=== PATIENT | female | born 1935 | race Asian ===

== ENCOUNTER 2021-06-15 12:26 | Inpatient (IN) | payer MEDICARE, OTHER ==
[~2021-06-15] VITALS: Ht 152.4 cm; Wt 54.7 kg
[2021-06-15 13:41] LABS: BASOPHILS % (AUTO) 0.4 % (0.0-2.0); EOSINOPHILS % (AUTO) 0.4 % (1.0-6.0); HEMATOCRIT 26.6 % (36-46); HEMOGLOBIN 8.8 g/dL (12.0-16.0); LYMPHOCYTES # (AUTO) 1.1 K/uL (1.0-4.8); LYMPHOCYTES % (AUTO) 9.7 % (22.0-44.0); MEAN CORPUSCULAR HEMOGLOBIN 31.6 pg (26.0-34.0); MEAN CORPUSCULAR HGB CONC 33.3 G/dL (31.0-37.0); MEAN CORPUSCULAR VOLUME 95 fL (80-100); NEUTROPHILS # (AUTO) 8.9 K/uL (1.8-7.7); NEUTROPHILS % (AUTO) 80.5 % (40.0-70.0); PLATELET COUNT (AUTO) 222 K/uL (150-450); RED CELL DISTRIBUTION WIDTH 13.8 % (11.5-14.5)
[2021-06-15 13:50] LABS: CALCIUM, TOTAL 8.3 mg/dL (8.8-10.5); CREATININE 4.16 mg/dL (0.60-1.30); POTASSIUM 4.3 mmol/L (3.5-5.1)
[2021-06-15 13:56] LABS: ALBUMIN 2.7 g/dL (3.4-5.0); BILIRUBIN,TOTAL 0.3 mg/dL (0.1-1.0); TOTAL PROTEIN, SERUM 7.7 g/dL (6.4-8.2)
[2021-06-15] MEDS ORDERED: ACETAMINOPHEN 325 MG TABLET PO PRN (16:00)
[2021-06-15] MEDS ORDERED: 0.9% SODIUM CHLORIDE 10 ML SYRINGE IVP PRN (16:00)
[2021-06-15] MEDS ORDERED: ONDANSETRON HCL 4 MG/2 ML VIAL IVP PRN ×2 (16:00→20:45)
[2021-06-15 17:18] LABS: COVID AG,FIA SOURCE NASOPHARYNGEAL
[2021-06-15] MEDS ORDERED: ALBUTEROL SULFATE 2.5 MG/0.5 ML NEB SOLUTION NEB PRN (20:45)
[2021-06-15] MEDS ORDERED: MAGNESIUM HYDROXIDE SUSPENSION 30 ML UDCUP PO PRN (20:45)
[2021-06-15] MEDS ORDERED: IPRATROPIUM BROMIDE 0.5 MG/2.5 ML NEB SOLUTION NEB PRN (20:45)
[2021-06-15] MEDS ORDERED: ZOLPIDEM TARTRATE 5 MG TABLET PO PRN (20:45)
[2021-06-15] MEDS ORDERED: BISACODYL 10 MG RECTAL RECTAL SUPPOSITORY PR PRN (20:45)
[2021-06-15] MEDS ORDERED: MORPHINE SULFATE 2 MG/ML SYRINGE IVP PRN (20:45)
[2021-06-15] MEDS ORDERED: HYDROCODONE/ACETAMINOPHEN 5-325 MG TABLET PO PRN (20:45)
[2021-06-15 20:53] VITALS: BP 102/57
[2021-06-15] MEDS: DOCUSATE SODIUM 100 MG CAPSULE PO SCH (21:43)
[2021-06-15] MEDS: HEPARIN SODIUM,PORCINE 5,000 UNITS/ML VIAL SQ SCH (23:42)
[2021-06-15 23:43] VITALS: BP 118/70
[2021-06-16] MEDS: ACETAMINOPHEN 325 MG TABLET PO PRN ×2 (01:15→23:48)
[2021-06-16 05:12] LABS: BASOPHILS % (AUTO) 0.4 % (0.0-2.0); EOSINOPHILS % (AUTO) 0.6 % (1.0-6.0); HEMATOCRIT 26.8 % (36-46); HEMOGLOBIN 8.9 g/dL (12.0-16.0); LYMPHOCYTES # (AUTO) 1.4 K/uL (1.0-4.8); MEAN CORPUSCULAR HEMOGLOBIN 31.2 pg (26.0-34.0); MEAN CORPUSCULAR HGB CONC 33.3 G/dL (31.0-37.0); MEAN CORPUSCULAR VOLUME 94 fL (80-100); MONOCYTES % (AUTO) 11.3 % (2.0-9.0); NEUTROPHILS # (AUTO) 6.1 K/uL (1.8-7.7); NEUTROPHILS % (AUTO) 71.7 % (40.0-70.0); PLATELET COUNT (AUTO) 223 K/uL (150-450); RED BLOOD CELL COUNT(AUTO) 2.86 MIL/uL (4.00-5.20)
[2021-06-16 06:12] VITALS: BP 100/51
[2021-06-16 08:28] VITALS: BP 114/66
[2021-06-16] MEDS: DOCUSATE SODIUM 100 MG CAPSULE PO SCH ×2 (08:45→21:08)
[2021-06-16] MEDS: PANTOPRAZOLE SODIUM 40 MG/VIAL IVP SCH (08:45)
[2021-06-16] MEDS: HEPARIN SODIUM,PORCINE 5,000 UNITS/ML VIAL SQ SCH ×3 (08:46→23:39)
[2021-06-16] MEDS ORDERED: FUROSEMIDE 40 MG/4 ML VIAL IVP SCH (09:00)
[2021-06-16 10:57] VITALS: BP 116/64
[2021-06-16] MEDS ORDERED: EPOETIN ALFA 10,000 UNITS/ML 2 ML VIAL SQ SCH (11:00)
[2021-06-16 11:48] LABS: APPEARANCE,URINE CLEAR (CLEAR); BILIRUBIN,URINE NEGATIVE (NEGATIVE); GLUCOSE, URINE (UA) NEGATIVE (NEGATIVE); KETONES,URINE NEGATIVE (NEGATIVE); LEUKOCYTE ESTERASE ,URINE NEGATIVE (NEGATIVE); NITRATE,URINE NEGATIVE (NEGATIVE); OCCULT BLOOD,URINE TRACE (NEGATIVE); PH,URINE 5.5 (5.0-8.0); PROTEIN,URINE POS 1+ (NEGATIVE); UROBILINOGEN,URINE 0.2 mg/dL (<=1.0)
[2021-06-16 11:51] LABS: CREATININE,URINE RANDOM 25.4 mg/dL (30.0-125.0); PROTEIN,URINE RANDOM 45 mg/dL (0-11.9); SODIUM,URINE RANDOM 113 mmol/l (20-110); UREA NITROGEN,URINE RANDOM 204 mg/dL (350-1000)
[2021-06-16] MEDS ORDERED: SODIUM CHLORIDE 0.9% 500 ML IV ONE (12:15)
[2021-06-16 12:26] LABS: BACTERIA,URINE None Seen /HPF (None Seen); RBC,URINE 0-2 /HPF (0-2); WBC,URINE None Seen /HPF (0-5)
[2021-06-16] MEDS ORDERED: SODIUM CHLORIDE 0.9% 1,000 ML ONE (12:30)
[2021-06-16] MEDS: CefTRIAXone 1 GM/DEXTROSE 50 ML IV SCH (12:46)
[2021-06-16 15:39] VITALS: BP 129/62
[2021-06-16 20:00] VITALS: BP 114/67
[2021-06-17] VITALS: BP 112/60
[2021-06-17 05:35] VITALS: BP 100/51
[2021-06-17 06:59] LABS: % IRON SATURATION 7.9 % (22-44)
[2021-06-17 07:32] LABS: CALCIUM, TOTAL 8.8 mg/dL (8.8-10.5); CREATININE 4.28 mg/dL (0.60-1.30); PHOSPHORUS 4.7 mg/dL (2.5-4.9); POTASSIUM 3.5 mmol/L (3.5-5.1)
[2021-06-17 08:39] VITALS: BP 115/64
[2021-06-17] MEDS: HEPARIN SODIUM,PORCINE 5,000 UNITS/ML VIAL SQ SCH ×3 (08:42→23:44)
[2021-06-17] MEDS: PANTOPRAZOLE SODIUM 40 MG/VIAL IVP SCH (08:43)
[2021-06-17] MEDS: DOCUSATE SODIUM 100 MG CAPSULE PO SCH ×2 (08:43→19:49)
[2021-06-17] MEDS ORDERED: SODIUM CHLORIDE 0.9% 1,000 ML IV ONE (09:45)
[2021-06-17 11:10] VITALS: BP 109/62
[2021-06-17 11:23] LABS: BASOPHILS % (AUTO) 0.6 % (0.0-2.0); EOSINOPHILS % (AUTO) 0.3 % (1.0-6.0); HEMATOCRIT 29.1 % (36-46); HEMOGLOBIN 9.4 g/dL (12.0-16.0); LYMPHOCYTES # (AUTO) 1.8 K/uL (1.0-4.8); LYMPHOCYTES % (AUTO) 21.9 % (22.0-44.0); MEAN CORPUSCULAR HEMOGLOBIN 30.6 pg (26.0-34.0); MEAN CORPUSCULAR HGB CONC 32.3 G/dL (31.0-37.0); MEAN CORPUSCULAR VOLUME 95 fL (80-100); MONOCYTES % (AUTO) 12.4 % (2.0-9.0); NEUTROPHILS # (AUTO) 5.4 K/uL (1.8-7.7); NEUTROPHILS % (AUTO) 64.8 % (40.0-70.0); PLATELET COUNT (AUTO) 236 K/uL (150-450); RED BLOOD CELL COUNT(AUTO) 3.07 MIL/uL (4.00-5.20); RED CELL DISTRIBUTION WIDTH 13.7 % (11.5-14.5)
[2021-06-17 11:48] LABS: ALBUMIN 2.6 g/dL (3.4-5.0); BILIRUBIN,TOTAL 0.3 mg/dL (0.1-1.0)
[2021-06-17] MEDS: CefTRIAXone 1 GM/DEXTROSE 50 ML IV SCH (12:10)
[2021-06-17 15:24] VITALS: BP 122/65
[2021-06-17] MEDS: SOD FERRIC GLUC COMPLX/SUCROSE 125 MG in SODIUM CHLORIDE 0.9% 100 ML IV SCH (19:49)
[2021-06-17 20:15] VITALS: BP 108/61
[2021-06-17] MEDS: ACETAMINOPHEN 325 MG TABLET PO PRN (21:07)
[2021-06-18] VITALS (7 sets, daily range): BP systolic 99–116; BP diastolic 51–64
[2021-06-18 07:03] LABS: BASOPHILS % (AUTO) 0.4 % (0.0-2.0); HEMATOCRIT 27.4 % (36-46); LYMPHOCYTES # (AUTO) 0.9 K/uL (1.0-4.8); LYMPHOCYTES % (AUTO) 11.9 % (22.0-44.0); MEAN CORPUSCULAR HEMOGLOBIN 30.9 pg (26.0-34.0); MEAN CORPUSCULAR VOLUME 94 fL (80-100); MONOCYTES # (AUTO) 0.9 K/uL (0.1-1.0); NEUTROPHILS # (AUTO) 5.6 K/uL (1.8-7.7); NEUTROPHILS % (AUTO) 74.7 % (40.0-70.0); PLATELET COUNT (AUTO) 213 K/uL (150-450); RED BLOOD CELL COUNT(AUTO) 2.93 MIL/uL (4.00-5.20); RED CELL DISTRIBUTION WIDTH 14.1 % (11.5-14.5)
[2021-06-18 07:28] LABS: ALBUMIN 2.1 g/dL (3.4-5.0); BILIRUBIN,TOTAL 0.2 mg/dL (0.1-1.0); CALCIUM, TOTAL 8.2 mg/dL (8.8-10.5); CREATININE 3.63 mg/dL (0.60-1.30); MAGNESIUM 1.9 mg/dL (1.80-2.40); PHOSPHORUS 3.9 mg/dL (2.5-4.9); POTASSIUM 3.9 mmol/L (3.5-5.1)
[2021-06-18] MEDS ORDERED: AZITHROMYCIN 500 MG/NS 250 ML IV ONE (09:45)
[2021-06-18] MEDS: HEPARIN SODIUM,PORCINE 5,000 UNITS/ML VIAL SQ SCH ×3 (10:27→23:49)
[2021-06-18] MEDS: PANTOPRAZOLE SODIUM 40 MG/VIAL IVP SCH (10:28)
[2021-06-18] MEDS: DOCUSATE SODIUM 100 MG CAPSULE PO SCH ×2 (10:28→20:41)
[2021-06-18] MEDS: CefTRIAXone 1 GM/DEXTROSE 50 ML IV SCH (12:11)
[2021-06-18] MEDS ORDERED: SODIUM CHLORIDE 0.9% 1,000 ML IV ONE (15:00)
[2021-06-18] MEDS: SOD FERRIC GLUC COMPLX/SUCROSE 125 MG in SODIUM CHLORIDE 0.9% 100 ML IV SCH (17:12)
[2021-06-18] MEDS: DOXYCYCLINE HYCLATE 100 MG TABLET PO SCH (20:41)
[2021-06-19] VITALS (7 sets, daily range): BP systolic 108–181; BP diastolic 61–111
[2021-06-19 03:06] LABS: ALBUMIN URINE (ELP) 39.1 %
[2021-06-19] MEDS: HEPARIN SODIUM,PORCINE 5,000 UNITS/ML VIAL SQ SCH ×3 (08:22→23:32)
[2021-06-19] MEDS: DOXYCYCLINE HYCLATE 100 MG TABLET PO SCH ×2 (08:23→20:37)
[2021-06-19] MEDS: DOCUSATE SODIUM 100 MG CAPSULE PO SCH ×2 (08:23→20:38)
[2021-06-19] MEDS: PANTOPRAZOLE SODIUM 40 MG/VIAL IVP SCH (08:23)
[2021-06-19 08:56] LABS: BASOPHILS % (AUTO) 0.5 % (0.0-2.0); EOSINOPHILS % (AUTO) 0.7 % (1.0-6.0); HEMATOCRIT 25.6 % (36-46); HEMOGLOBIN 8.4 g/dL (12.0-16.0); LYMPHOCYTES # (AUTO) 1.3 K/uL (1.0-4.8); LYMPHOCYTES % (AUTO) 18.1 % (22.0-44.0); MEAN CORPUSCULAR HEMOGLOBIN 31.1 pg (26.0-34.0); MEAN CORPUSCULAR VOLUME 94 fL (80-100); MONOCYTES # (AUTO) 0.7 K/uL (0.1-1.0); NEUTROPHILS # (AUTO) 4.9 K/uL (1.8-7.7); NEUTROPHILS % (AUTO) 70.7 % (40.0-70.0); PLATELET COUNT (AUTO) 220 K/uL (150-450); RED BLOOD CELL COUNT(AUTO) 2.72 MIL/uL (4.00-5.20); RED CELL DISTRIBUTION WIDTH 14.1 % (11.5-14.5)
[2021-06-19 09:03] LABS: ALBUMIN 2.2 g/dL (3.4-5.0); BILIRUBIN,TOTAL 0.2 mg/dL (0.1-1.0); CALCIUM, TOTAL 8.4 mg/dL (8.8-10.5); CREATININE 3.1 mg/dL (0.60-1.30); MAGNESIUM 1.9 mg/dL (1.80-2.40); PHOSPHORUS 3.4 mg/dL (2.5-4.9); POTASSIUM 4.6 mmol/L (3.5-5.1); TOTAL PROTEIN, SERUM 7.3 g/dL (6.4-8.2)
[2021-06-19 11:41] LABS: ABG BASE EXCESS -9.7 mmol/L (-2.0-3.0); ABG CARBOXYHEMOGLOBIN 0.3 % (0.0-1.5); ABG METHEMOGLOBIN 0.1 % (0.0-1.5); ABG OXYGEN CONTENT 14.6 mL/dL (15.0-23.0); ABG OXYGEN SATURATION 97.8 % (95.0-98.0); ABG OXYHEMOGLOBIN 97.4 % (94.0-100.0); ABG PCO2 43 mmHg (35-45); ABG PH 7.233 (7.35-7.450); ABG TOTAL HEMOGLOBIN 10.5 G/dL (12.0-18.0); SOURCE, BLOOD GAS ARTERIAL; TEMPERATURE, FAHRENHEIT, BG 98.6 FAHREN (96.0-98.6)
[2021-06-19 11:42] LABS: O2 DEVICE,BLOOD GAS NRB (ROOM AIR); SITE, BLOOD GAS LFT RADIAL
[2021-06-19] MEDS ORDERED: BUMETANIDE 0.25 MG/ML 4 ML VIAL IVP ONE (12:00)
[2021-06-19] MEDS ORDERED: MORPHINE SULFATE 2 MG/ML SYRINGE IVP ONE (12:00)
[2021-06-19] MEDS ORDERED: NITROGLYCERIN 2% (1 GM=INCH) PACKET TP ONE (12:00)
[2021-06-19] MEDS: CefTRIAXone 1 GM/DEXTROSE 50 ML IV SCH (12:12)
[2021-06-19] MEDS: SOD FERRIC GLUC COMPLX/SUCROSE 125 MG in SODIUM CHLORIDE 0.9% 100 ML IV SCH (17:26)
[2021-06-19 18:12] LABS: GLUCOMETER DEV NAME(LOC) 5S.2B; GLUCOSE,POINT OF CARE 124 MG/DL (70-110)
[2021-06-20 00:15] VITALS: BP 125/78
[2021-06-20 05:53] VITALS: BP 122/77
[2021-06-20 06:21] LABS: BASOPHILS % (AUTO) 0.5 % (0.0-2.0); EOSINOPHILS % (AUTO) 1.7 % (1.0-6.0); HEMATOCRIT 28.7 % (36-46); HEMOGLOBIN 9.5 g/dL (12.0-16.0); LYMPHOCYTES # (AUTO) 1.4 K/uL (1.0-4.8); LYMPHOCYTES % (AUTO) 16.9 % (22.0-44.0); MEAN CORPUSCULAR HEMOGLOBIN 31.2 pg (26.0-34.0); MEAN CORPUSCULAR VOLUME 94 fL (80-100); MONOCYTES # (AUTO) 0.6 K/uL (0.1-1.0); MONOCYTES % (AUTO) 7.8 % (2.0-9.0); NEUTROPHILS % (AUTO) 73.1 % (40.0-70.0); PLATELET COUNT (AUTO) 274 K/uL (150-450); RED BLOOD CELL COUNT(AUTO) 3.05 MIL/uL (4.00-5.20); RED CELL DISTRIBUTION WIDTH 14.4 % (11.5-14.5)
[2021-06-20 06:32] LABS: ALBUMIN 2.4 g/dL (3.4-5.0); BILIRUBIN,TOTAL 0.3 mg/dL (0.1-1.0); CREATININE 3.22 mg/dL (0.60-1.30); MAGNESIUM 1.9 mg/dL (1.80-2.40); PHOSPHORUS 3.8 mg/dL (2.5-4.9); POTASSIUM 3.9 mmol/L (3.5-5.1); TOTAL PROTEIN, SERUM 7.9 g/dL (6.4-8.2)
[2021-06-20 07:35] VITALS: BP 125/76
[2021-06-20] MEDS: DOCUSATE SODIUM 100 MG CAPSULE PO SCH ×2 (09:54→20:40)
[2021-06-20] MEDS: DOXYCYCLINE HYCLATE 100 MG TABLET PO SCH ×2 (09:54→20:40)
[2021-06-20] MEDS: PANTOPRAZOLE SODIUM 40 MG/VIAL IVP SCH (09:55)
[2021-06-20] MEDS: HEPARIN SODIUM,PORCINE 5,000 UNITS/ML VIAL SQ SCH ×3 (09:55→23:58)
[2021-06-20] MEDS ORDERED: BUMETANIDE 0.25 MG/ML 4 ML VIAL IVP ONE (10:30)
[2021-06-20 11:36] VITALS: BP 122/74
[2021-06-20] MEDS: CefTRIAXone 1 GM/DEXTROSE 50 ML IV SCH (12:17)
[2021-06-20 16:16] VITALS: BP 142/77
[2021-06-20] MEDS: SOD FERRIC GLUC COMPLX/SUCROSE 125 MG in SODIUM CHLORIDE 0.9% 100 ML IV SCH (18:46)
[2021-06-20 19:20] VITALS: BP 124/70
[2021-06-20 22:58] LABS: INFLUENZA TYPE A NEGATIVE FOR TYPE A (NEGATIVE); INFLUENZA TYPE B NEGATIVE FOR TYPE B (NEGATIVE)
[2021-06-21 00:13] VITALS: BP 109/57
[2021-06-21 05:20] VITALS: BP 130/74
[2021-06-21 07:15] LABS: BASOPHILS % (AUTO) 0.5 % (0.0-2.0); EOSINOPHILS % (AUTO) 2.7 % (1.0-6.0); HEMATOCRIT 26.4 % (36-46); HEMOGLOBIN 8.7 g/dL (12.0-16.0); LYMPHOCYTES # (AUTO) 1.1 K/uL (1.0-4.8); LYMPHOCYTES % (AUTO) 19.9 % (22.0-44.0); MEAN CORPUSCULAR HEMOGLOBIN 31.2 pg (26.0-34.0); MEAN CORPUSCULAR VOLUME 95 fL (80-100); MONOCYTES # (AUTO) 0.6 K/uL (0.1-1.0); MONOCYTES % (AUTO) 10.9 % (2.0-9.0); NEUTROPHILS # (AUTO) 3.7 K/uL (1.8-7.7); PLATELET COUNT (AUTO) 251 K/uL (150-450); RED BLOOD CELL COUNT(AUTO) 2.79 MIL/uL (4.00-5.20); RED CELL DISTRIBUTION WIDTH 14.2 % (11.5-14.5)
[2021-06-21 07:32] LABS: ALBUMIN 2.2 g/dL (3.4-5.0); BILIRUBIN,TOTAL 0.2 mg/dL (0.1-1.0); CREATININE 2.91 mg/dL (0.60-1.30); MAGNESIUM 1.9 mg/dL (1.80-2.40); PHOSPHORUS 3.6 mg/dL (2.5-4.9); TOTAL PROTEIN, SERUM 7.3 g/dL (6.4-8.2)
[2021-06-21 07:37] VITALS: BP 113/61
[2021-06-21] MEDS: DOCUSATE SODIUM 100 MG CAPSULE PO SCH (09:20)
[2021-06-21] MEDS: DOXYCYCLINE HYCLATE 100 MG TABLET PO SCH (09:20)
[2021-06-21] MEDS: PANTOPRAZOLE SODIUM 40 MG/VIAL IVP SCH (09:21)
[2021-06-21] MEDS: HEPARIN SODIUM,PORCINE 5,000 UNITS/ML VIAL SQ SCH ×2 (09:21→16:00)
[2021-06-21 11:56] VITALS: BP 124/87
[2021-06-21] MEDS: CefTRIAXone 1 GM/DEXTROSE 50 ML IV SCH (13:46)
[2021-06-21] MEDS ORDERED: FURO20 PO (15:03)
[2021-06-21] MEDS ORDERED: CARV3 PO (15:04)
[2021-06-21] MEDS ORDERED: DOXY-354 PO (15:05)
[2021-06-21 15:59] VITALS: BP 130/70
[2021-06-21] MEDS: SOD FERRIC GLUC COMPLX/SUCROSE 125 MG in SODIUM CHLORIDE 0.9% 100 ML IV SCH (16:30)
== END 2021-06-21 17:00 | disposition home or self-care (01) | DRG 73 ==
LOC: EMS 12:28 → 5N 18:40 → 5S 06-19 21:20
PROVIDERS: ADMIT Hospitalist; ATTEND Hospitalist
DX: G90.8 Other disorders of autonomic nervous system (principal); J18.9 Pneumonia, unspecified organism; I50.31 Acute diastolic (congestive) heart failure; J96.01 Acute respiratory failure with hypoxia; I13.2 Hypertensive heart and chronic kidney disease with heart failure and with stage 5 chronic kidney disease, or end stage renal disease; N18.5 Chronic kidney disease, stage 5; N17.9 Acute kidney failure, unspecified; E44.0 Moderate protein-calorie malnutrition; E83.39 Other disorders of phosphorus metabolism; E11.42 Type 2 diabetes mellitus with diabetic polyneuropathy; E11.22 Type 2 diabetes mellitus with diabetic chronic kidney disease; D63.1 Anemia in chronic kidney disease; E87.5 Hyperkalemia; I25.10 Atherosclerotic heart disease of native coronary artery without angina pectoris; I48.91 Unspecified atrial fibrillation; Z20.822 Contact with and (suspected) exposure to COVID-19; I34.0 Nonrheumatic mitral (valve) insufficiency; E78.5 Hyperlipidemia, unspecified; Z91.81 History of falling; Z68.23 Body mass index [BMI] 23.0-23.9, adult; Z79.899 Other long term (current) drug therapy
CPT/HCPCS: 36600; 70450; 71045; 76770; 80053; 81001; 82043; 82570; 82728; 82805; 82962; 83540; 83550; 83735; 83880; 84100; 84156; 84166; 84300; 84484; 84540; 85025; 85379; 87040; 87804; 93005; 93306; 93880; 94640; 94660; 99285; C9113; G0378; J0456; J0696; J0885; J1644; J1940; J2270; J2405; J2916; J3490; J7030; J7050; 36415-L1; 36415-TC; J7613; U0003

== ENCOUNTER 2022-06-25 20:07 | Inpatient (IN) | payer MEDICARE, OTHER ==
[~2022-06-25] VITALS: Ht 152.4 cm; Wt 49.9 kg
[~2022-06-25 20:07] MED LIST: CARV12.530 PO; OMEP20 PO; SODI5POW3 PO
[2022-06-25] MEDS ORDERED: FUROSEMIDE 40 MG/4 ML VIAL IVP ONE (20:15)
[2022-06-25] MEDS ORDERED: ACET325T51 PO (20:22)
[2022-06-25] MEDS ORDERED: LINA5TAB PO (20:22)
[2022-06-25] MEDS ORDERED: FLUT16SP NASAL (20:22)
[2022-06-25] MEDS ORDERED: CETI10TA58 PO (20:22)
[2022-06-25] MEDS ORDERED: GABA-1181 PO (20:22)
[2022-06-25] MEDS ORDERED: OLOP5DRO27 OU (20:22)
[2022-06-25] MEDS ORDERED: PANT40TA54 PO (20:22)
[2022-06-25] MEDS ORDERED: CARV6 PO (20:22)
[2022-06-25] MEDS ORDERED: TRIA15CR49 TP (20:22)
[2022-06-25 20:27] LABS: COVID AG,FIA SOURCE NASOPHARYNGEAL
[2022-06-25] MEDS ORDERED: NITROGLYCERIN 50 MG/D5% WATER 250 ML IV PRN (20:30)
[2022-06-25 20:34] LABS: BASOPHILS % (AUTO) 0.3 % (0.0-2.0); HEMATOCRIT 34.9 % (36-46); HEMOGLOBIN 11.3 g/dL (12.0-16.0); LYMPHOCYTES # (AUTO) 2.5 K/uL (1.0-4.8); LYMPHOCYTES % (AUTO) 30.7 % (22.0-44.0); MEAN CORPUSCULAR HEMOGLOBIN 31.8 pg (26.0-34.0); MEAN CORPUSCULAR HGB CONC 32.4 G/dL (31.0-37.0); MEAN CORPUSCULAR VOLUME 98 fL (80-100); MONOCYTES # (AUTO) 0.3 K/uL (0.1-1.0); MONOCYTES % (AUTO) 3.3 % (2.0-9.0); NEUTROPHILS # (AUTO) 5.1 K/uL (1.8-7.7); NEUTROPHILS % (AUTO) 63.7 % (40.0-70.0); PLATELET COUNT (AUTO) 150 K/uL (150-450); RED BLOOD CELL COUNT(AUTO) 3.55 MIL/uL (4.00-5.20); RED CELL DISTRIBUTION WIDTH 15.4 % (11.5-14.5)
[2022-06-25 20:39] LABS: ANION GAP 8 mmol/L (8-16); CALCIUM, TOTAL 9.1 mg/dL (8.8-10.5); CARBON DIOXIDE 23 mmol/L (22-29); CHLORIDE 107 mmol/L (98-107); GLOMERULAR FILTR. RATE CALC 14 mL/min (>60); GLUCOSE,RANDOM 160 mg/dL (70-110); POTASSIUM 5.2 mmol/L (3.5-5.1); SODIUM SERUM 138 mmol/L (136-145); UREA NITROGEN, BLOOD 44 mg/dL (7-18)
[2022-06-25 20:44] LABS: ALANINE AMINOTRANSFERASE 13 U/L (12-78); ALBUMIN 3.2 g/dL (3.4-5.0); ALKALINE PHOSPHATASE 81 U/L (46-116); ASPARTATE AMINOTRANSFERASE 23 U/L (15-37); BILIRUBIN,TOTAL 0.3 mg/dL (0.1-1.0)
[2022-06-25 20:58] LABS: INFLUENZA TYPE A NEGATIVE FOR TYPE A (NEGATIVE); INFLUENZA TYPE B NEGATIVE FOR TYPE B (NEGATIVE)
[2022-06-25] MEDS ORDERED: ACETAMINOPHEN 325 MG TABLET PO PRN ×2 (21:00→21:30)
[2022-06-25] MEDS ORDERED: ONDANSETRON HCL 4 MG/2 ML VIAL IVP PRN ×2 (21:00→21:30)
[2022-06-25 21:01] LABS: B-TYPE NATRIURETIC PEPTIDE > 5000 pg/mL (0-100)
[2022-06-25] MEDS ORDERED: ATORVASTATIN CALCIUM 40 MG TABLET PO ONE (21:30)
[2022-06-25] MEDS ORDERED: CETIRIZINE HCL 10 MG TABLET PO PRN (21:30)
[2022-06-25] MEDS ORDERED: CefTRIAXone 1 GM/DEXTROSE 50 ML IV SCH (22:00)
[2022-06-25] MEDS ORDERED: AZITHROMYCIN 500 MG/NS 250 ML IV SCH (23:00)
[2022-06-26] MEDS ORDERED: NITROGLYCERIN 2% (1 GM=INCH) PACKET TP SCH
[2022-06-26] MEDS ORDERED: HEPARIN SODIUM,PORCINE 5,000 UNITS/ML VIAL SQ SCH
[2022-06-26 00:36] LABS: CALCIUM, TOTAL 9.3 mg/dL (8.8-10.5); CREATININE 3.3 mg/dL (0.60-1.30); POTASSIUM 4.9 mmol/L (3.5-5.1)
[2022-06-26 05:13] LABS: HEMATOCRIT 32.3 % (36-46); HEMOGLOBIN 10.7 g/dL (12.0-16.0); LYMPHOCYTES # (AUTO) 1.9 K/uL (1.0-4.8); MEAN CORPUSCULAR HEMOGLOBIN 31.8 pg (26.0-34.0); MONOCYTES # (AUTO) 0.4 K/uL (0.1-1.0); NEUTROPHILS # (AUTO) 3.1 K/uL (1.8-7.7)
[2022-06-26 05:16] LABS: BASOPHILS % (AUTO) 0.5 % (0.0-2.0); EOSINOPHILS % (AUTO) 0.8 % (1.0-6.0); LYMPHOCYTES % (AUTO) 34.5 % (22.0-44.0); MEAN CORPUSCULAR HGB CONC 33.1 G/dL (31.0-37.0); MEAN CORPUSCULAR VOLUME 96 fL (80-100); MONOCYTES % (AUTO) 7.7 % (2.0-9.0); NEUTROPHILS % (AUTO) 56.5 % (40.0-70.0); PLATELET COUNT (AUTO) 143 K/uL (150-450); RED BLOOD CELL COUNT(AUTO) 3.36 MIL/uL (4.00-5.20); RED CELL DISTRIBUTION WIDTH 15.1 % (11.5-14.5)
[2022-06-26 05:22] LABS: CALCIUM, TOTAL 9.2 mg/dL (8.8-10.5); CREATININE 3.3 mg/dL (0.60-1.30); MAGNESIUM 1.9 mg/dL (1.80-2.40); POTASSIUM 4.7 mmol/L (3.5-5.1)
[2022-06-26] MEDS ORDERED: HEPARIN SODIUM,PORCINE 5,000 UNITS/ML VIAL IVP ONE (06:00)
[2022-06-26] MEDS ORDERED: INSULIN LISPRO 100 UNITS/ML SQ PRN (06:00)
[2022-06-26] MEDS ORDERED: DEXTROSE 50%-WATER 25 GM/50 ML SYRINGE IVP PRN (06:00)
[2022-06-26] MEDS ORDERED: HEPARIN SODIUM 25000 UNITS/D5W 250 ML IV PRN (06:00)
[2022-06-26] MEDS ORDERED: HEPARIN SODIUM,PORCINE 5,000 UNITS/ML VIAL IVP PRN ×2 (06:00)
[2022-06-26] MEDS ORDERED: CETIRIZINE HCL 10 MG TABLET PO PRN (08:45)
[2022-06-26] MEDS ORDERED: SODIUM ZIRCONIUM CYCLOSILICATE 5 GM POWDER PACKET PO SCH (09:00)
[2022-06-26] MEDS ORDERED: LinaGLIPtin 5 MG TABLET PO SCH (09:00)
[2022-06-26 11:21] VITALS: BP 132/75
[2022-06-26] MEDS: SODIUM ZIRCONIUM CYCLOSILICATE 5 GM POWDER PACKET PO SCH (12:34)
[2022-06-26] MEDS: ATORVASTATIN CALCIUM 40 MG TABLET PO SCH (12:35)
[2022-06-26] MEDS: CARVEDILOL 6.25 MG TABLET PO SCH ×2 (12:35→20:38)
[2022-06-26] MEDS: FUROSEMIDE 40 MG/4 ML VIAL IVP SCH ×2 (12:35→20:37)
[2022-06-26] MEDS: GABAPENTIN 300 MG CAPSULE PO SCH ×3 (12:35→20:31)
[2022-06-26] MEDS: PANTOPRAZOLE SODIUM 40 MG DR TABLET PO SCH (12:36)
[2022-06-26 15:40] VITALS: BP 114/62
[2022-06-26 18:43] VITALS: BP 165/70
[2022-06-26 18:45] VITALS: BP 89/44
[2022-06-26 19:39] VITALS: BP 96/57
[2022-06-26] MEDS: INSULIN GLARGINE,HUM.REC.ANLOG 100 UNITS/ML SQ SCH (20:33)
[2022-06-26] MEDS: NITROGLYCERIN 2% (1 GM=INCH) PACKET TP SCH (23:00)
[2022-06-26 23:13] VITALS: BP 98/61
[2022-06-27 01:16] LABS: GLUCOMETER DEV NAME(LOC) 5S.1B; GLUCOSE,POINT OF CARE 148 MG/DL (70-110)
[2022-06-27 03:37] VITALS: BP 116/62
[2022-06-27] MEDS: NITROGLYCERIN 2% (1 GM=INCH) PACKET TP SCH ×3 (06:51→17:45)
[2022-06-27 07:43] VITALS: BP 129/72
[2022-06-27 08:01] LABS: GLUCOMETER DEV NAME(LOC) 5S.1B; GLUCOSE,POINT OF CARE 87 MG/DL (70-110)
[2022-06-27] MEDS: SODIUM ZIRCONIUM CYCLOSILICATE 5 GM POWDER PACKET PO SCH (10:36)
[2022-06-27] MEDS: PANTOPRAZOLE SODIUM 40 MG DR TABLET PO SCH (10:36)
[2022-06-27] MEDS: CARVEDILOL 6.25 MG TABLET PO SCH ×2 (10:36→21:34)
[2022-06-27] MEDS: FUROSEMIDE 40 MG/4 ML VIAL IVP SCH ×2 (10:36→21:33)
[2022-06-27] MEDS: GABAPENTIN 300 MG CAPSULE PO SCH ×3 (10:37→21:34)
[2022-06-27] MEDS: ATORVASTATIN CALCIUM 40 MG TABLET PO SCH (10:37)
[2022-06-27 10:51] VITALS: BP 133/55
[2022-06-27 16:01] VITALS: BP 112/58
[2022-06-27 19:35] VITALS: BP 102/59
[2022-06-27] MEDS: INSULIN GLARGINE,HUM.REC.ANLOG 100 UNITS/ML SQ SCH (21:42)
[2022-06-27 23:52] VITALS: BP 122/64
[2022-06-28] MEDS: NITROGLYCERIN 2% (1 GM=INCH) PACKET TP SCH ×3 (00:41→13:31)
[2022-06-28 04:10] VITALS: BP 125/59
[2022-06-28 07:36] VITALS: BP 123/57
[2022-06-28] MEDS: CARVEDILOL 6.25 MG TABLET PO SCH (09:48)
[2022-06-28] MEDS: FUROSEMIDE 40 MG/4 ML VIAL IVP SCH (09:48)
[2022-06-28] MEDS: GABAPENTIN 300 MG CAPSULE PO SCH (09:48)
[2022-06-28] MEDS: SODIUM ZIRCONIUM CYCLOSILICATE 5 GM POWDER PACKET PO SCH (09:48)
[2022-06-28] MEDS: PANTOPRAZOLE SODIUM 40 MG DR TABLET PO SCH (09:48)
[2022-06-28] MEDS: ATORVASTATIN CALCIUM 40 MG TABLET PO SCH (09:49)
[2022-06-28] MEDS ORDERED: FURO40 PO (11:19)
[2022-06-28 12:10] VITALS: BP 132/63
[2022-06-28 12:11] LABS: GLUCOMETER DEV NAME(LOC) 5S.2B; GLUCOSE,POINT OF CARE 117 MG/DL (70-110)
[2022-06-28 12:11] LABS: GLUCOMETER DEV NAME(LOC) 5S.2B; GLUCOSE,POINT OF CARE 112 MG/DL (70-110)
== END 2022-06-28 13:50 | disposition home or self-care (01) | DRG 291 ==
LOC: EMS 20:16 → 5S 06-26 08:10 → EMS 06-26 08:37
PROVIDERS: ADMIT Internal Medicine; ATTEND Internal Medicine
PROC: 5A09357 Assistance with Respiratory Ventilation, Less than 24 Consecutive Hours, Continuous Positive Airway Pressure (ICD-10-PCS; principal; 2022-06-25)
DX: I13.0 Hypertensive heart and chronic kidney disease with heart failure and stage 1 through stage 4 chronic kidney disease, or unspecified chronic kidney disease (principal); I50.33 Acute on chronic diastolic (congestive) heart failure; J96.01 Acute respiratory failure with hypoxia; I16.1 Hypertensive emergency; N18.4 Chronic kidney disease, stage 4 (severe); E11.22 Type 2 diabetes mellitus with diabetic chronic kidney disease; E87.5 Hyperkalemia; D63.8 Anemia in other chronic diseases classified elsewhere; Z20.822 Contact with and (suspected) exposure to COVID-19; I34.0 Nonrheumatic mitral (valve) insufficiency; Z83.3 Family history of diabetes mellitus; Z79.899 Other long term (current) drug therapy
CPT/HCPCS: 71045; 80048; 80053; 82962; 83605; 83735; 83880; 84484; 85025; 85730; 87040; 87804; 93005; 94660; 99291; J1644; J1815; J1940; Q9967; 36415-L1; 36415-TC